=== PATIENT | female | born 1960 | race Caucasian/White ===

== ENCOUNTER 2017-10-11 13:32 | Inpatient (IN) ==
[2017-10-11] MEDS ORDERED: 0.9 % Sodium Chloride 1,000 ML IVC ONE (15:28)
[2017-10-11] MEDS ORDERED: Ondansetron 4 MG/2 ML VIAL IVP ONE (15:28)
--- NOTE | 2017-10-11 15:32 | Emergency Department Note ---
Disposition Clinical Impression: Nausea and vomiting Qualifiers: Vomiting type: unspecified Vomiting Intractability: unspecified Qualified Code( s): R11.2 - Nausea with vomiting, unspecified Pneumonia Qualifiers: Pneumonia type: due to unspecified organism Laterality: right Lung location: upper lobe of lung Qualified Code(s): J18.1 - Lobar pneumonia, unspecified organism Disposition: Admitted As Inpatient Condition: Good Referrals: Nakul Bhandari, FIXED CAPITAL CLERK [Primary Care Provider] - Forms: ED Satisfaction Letter Time of Disposition: 20:48 General Adult HPI - General Chief complaint: ED Nausea/Vomiting/Diarrhea Stated complaint: flu like symptoms Time Seen by Provider: 10/11/17 15:21 Source: patient Mode of arrival: ambulatory Limitations: no limitations Nursing Notes Reviewed: Yes Vital Signs Reviewed: Yes - History of Present Illness HPI Narrative: 57-year-old comes in complaining of nausea vomiting aches. She saw her family doctor, flu swab was negative, nausea vomiting for 4 days she cannot keep anything down. Pt Subjective Complaint: Nausea vomiting body aches Onset (ago): day(s) (4) Pain Scale: 7 Quality: aching Consistency: constant Improves with: nothing Worsens with: nothing Associated symptoms: Reports: cough, fever/chills, shortness of breath ( Intermittent) - Related Data Home Medications Medication Instructions Recorded Confirmed Albuterol Sulfate [Proair Hfa] 1 puff IH Q4H 10/22/15 10/22/15 Lovastatin [Mevacor] 20 mg PO HS 10/22/15 10/22/15 Fluticasone/Salmeterol [Advair 06/14/16 06/14/16 100-50 Diskus] Metoprolol [Lopressor] 25 mg PO 06/14/16 CloNIDine 1 PO DAILY 09/20/17 Losartan Potassium 09/20/17 Vitamin D 1 PO DAILY 09/20/17 Fluticasone Propionate Nasal 120 spray NS 10/08/17 [Flonase] Montelukast Sodium [Singulair] 10 mg PO 10/08/17 Previous Rx's Medication Instructions Recorded Promethazine [Phenergan] 25 mg PO Q6HR PRN #16 tablet 10/08/17 Allergies Allergy/AdvReac Type Severity Reaction Status Date / Time No Known Allergies Allergy Verified 09/20/17 13:46 All systems ED: reviewed and negative except as stated. Constitutional: Denies: fever, chills, weakness, weight change Eyes: Denies: eye pain, eye discharge, vision change ENT ED: Denies: ear pain, throat pain, dental pain, hearing loss, epistaxis, congestion, dysphagia Cardiovascular: Denies: chest pain, palpitations, dyspnea on exertion, edema, syncope Respiratory: Reports: cough. Denies: dyspnea, wheezes, hemoptysis, stridor Gastrointestinal: Reports: nausea, vomiting. Denies: abdominal pain, diarrhea, constipation, hematemesis, melena, hematochezia Genitourinary: Denies: dysuria, frequency, hematuria, discharge Musculoskeletal: Reports: arthralgia. Denies: back pain, neck pain, myalgia Integumentary: Denies: rash, abrasion, lesions Neurological: Denies: headache, weakness, numbness, paresthesias, confusion, abnormal gait, vertigo Psychiatric: Denies: anxiety, depression, suicidal thoughts, homicidal thoughts , auditory hallucinations, visual hallucinations Endocrine: Denies: fatigue Hematological/Lymphatic: Denies: easy bleeding, easy bruising Allergic/Immunologic: Denies: facial swelling, urticaria Past Medical History - Past Medical History Medical history: Reports: asthma, hyperlipidemia, hypertension, migraine Surgical history: Reports: non-contributory Psychiatric history: Reports: anxiety, depression PHYSICIAN PRACTICE CONSULTANT history: Reports: bilateral tubal ligation - Social History Smoking Status: Current every day smoker Smokeless Tobacco Status: No Alcohol use: Reports: none Drug use: Reports: none Physical Exam - General Limitations: no limitations General appearance: alert, in no apparent distress - Head Head exam: atraumatic, normocephalic, normal inspection - Eye Eye exam: Present: normal appearance, PERRL, EOMI - Expanded Eye Exam Pupils: Left: reactive - ENT ENT exam: normal exam, normal oropharynx, mucous membranes moist - Expanded ENT Exam External ear exam: Present: normal external inspection Mouth exam: Present: normal external inspection Teeth exam: Present: normal inspection Throat exam: Present: normal inspection - Neck Neck exam: Present: normal inspection, full ROM, trachea midline - Chest Chest inspection: Present: normal inspection, symmetric chest wall rise - Respiratory Respiratory exam: Present: normal lung sounds bilaterally - Cardiovascular Cardiovascular exam: Present: regular rate, normal rhythm, normal heart sounds - Abdominal Exam Abdominal exam: Present: soft, Non-Tender. Absent: tenderness, distention, guarding, rebound, rigidity - Extremities Exam Extremities exam: Present: normal inspection, full ROM. Absent: tenderness, pedal edema - Expanded Upper Extremity Exam Shoulder exam: Present: normal inspection, full ROM Arm exam: Present: normal inspection, full ROM Elbow exam: Present: normal inspection, full ROM Forearm/Wrist exam: Present: normal inspection, full ROM Hand exam: Present: normal inspection, full ROM Vascular exam: Normal: capillary refill, radial pulse - Expanded Lower Extremity Exam Hip/Pelvis exam: Present: normal inspection, full ROM Upper leg exam: Present: normal inspection, full ROM Knee exam: Present: normal inspection, full ROM Lower leg exam: Present: normal inspection, full ROM Ankle exam: Present: normal inspection, full ROM Foot/toe exam: Present: normal inspection, full ROM Neurovascular/Tendon exam: Absent: motor deficit, sensory deficit, tendon deficit - Back Exam Back exam: Present: normal inspection, full ROM. Absent: tenderness - Neurological Exam Neurological exam: Present: alert, oriented X3 - Expanded Neurological Exam Patient oriented to: Present: person, place, time Coma Scale Eye Opening: Spontaneous Coma Scale Motor Response: Obeys Commands Coma Scale Verbal Response: Oriented Coma Scale Total: 15 - Psychiatric Psychiatric exam: Present: normal affect, normal mood - Skin Skin exam: Present: warm, dry, intact, normal color Course - Reevaluation(s) Reevaluation #1: 57-year-old with a history of cough congestion body aches. Chest x-ray shows a large right upper lobe pneumonia also concerning for a mass. CT scan was obtained. Patient given IV antibiotics will be admitted for IV therapy. Time: 20:49 - Consultations Consultation #1: Discussed with Dr. Marie, admit Time: 21:01 Vital Signs Temperature 98.7 F 10/11/17 14:00 Pulse Rate 87 10/11/17 14:00 Respiratory Rate 20 10/11/17 14:00 Blood Pressure 130/100 10/11/17 14:00 O2 Sat by Pulse Oximetry 96 10/11/17 14:00 Temperature 98.7 F 10/11/17 14:00 Pulse Rate 88 10/11/17 20:38 Respiratory Rate 18 10/11/17 20:38 Blood Pressure 135/75 10/11/17 20:38 O2 Sat by Pulse Oximetry 99 10/11/17 20:38 Oxygen Delivery Oxygen Delivery Room Air Medical Decision Making - Lab Data Lab results reviewed: Yes I reviewed the patient's lab results. Result diagrams: 10/11/17 15:41 10/11/17 15:41 Lab Results 10/11/17 10/11/17 10/11/17 Range/Units 15:41 15:41 15:41 WBC 14.8 H (4.3-11.1) K/mcL RBC 3.66 L (3.82-4.97) M/mcL Hgb 11.1 L (11.5-15.4) g/dL Hct 33.1 L (35.3-44.9) % MCV 90.4 (83.0-100.0) fL MCH 30.3 (28.0-33.3) pg MCHC 33.5 (31.6-35.5) g/dL RDW 12.8 (11.5-14.5) % Plt Count 136 L (140-400) K/mcL MPV 10.4 (9.4-12.4) fL Immature Gran % 0.6 (0-4) % Seg Neutrophils % 84.7 % Lymphocytes % 6.5 % Monocytes % 7.9 % Eosinophils % 0.1 % Basophils % 0.2 % Neutrophils # 12.5 H (1.6-8.9) K/mcL Lymphocytes # 1.0 (0.6-4.6) K/mcL Monocytes # 1.2 (0.0-1.3) K/mcL Eosinophils # 0.0 (0.0-0.6) K/mcL Basophils # 0.0 (0.0-0.2) K/mcL Sodium 129 L (136-145) mEq/L Potassium 3.1 L (3.5-5.1) mEq/L Chloride 96 L (98-107) mEq/L Carbon Dioxide 25 (23-29) mEq/L BUN 14 (6-20) mg/dL Creatinine 0.92 (0.60-1.20) mg/dL Est GFR ( Amer) > 60 (> 60) Est GFR (Non-Af Amer) > 60 (> 60) BUN/Creatinine Ratio 15 (6-26) Glucose 144 H (70-105) mg/dL Calculated Osmolality 271 L (280-300) Lactic Acid 0.7 (0.5-2.2) mmol/L Calcium 8.9 (8.6-10.3) mg/dL Amylase < 10 L (29-103) Units/L Lipase 19 (11-82) Units/L - Radiology Data Radiology results reviewed: Yes I reviewed the patient's radiology results.
[2017-10-11 16:01] LABS: Basophils % 0.2 %; Eosinophils % 0.1 %; Hematocrit 33.1 % (35.3-44.9); Hemoglobin 11.1 g/dL (11.5-15.4); Immature Granulocytes % 0.6 % (0-4); Lymphocytes % 6.5 %; Mean Corpuscular HGB Conc 33.5 g/dL (31.6-35.5); Mean Corpuscular Hemoglobin 30.3 pg (28.0-33.3); Mean Corpuscular Volume 90.4 fL (83.0-100.0); Mean Platelet Volume 10.4 fL (9.4-12.4); Monocytes # 1.2 K/mcL (0.0-1.3); Monocytes % 7.9 %; Neutrophils # 12.5 K/mcL (1.6-8.9); Platelet Count 136 K/mcL (140-400); Red Blood Count 3.66 M/mcL (3.82-4.97); Red Cell Distribution Width 12.8 % (11.5-14.5); Segmented Neutrophils % 84.7 %
[2017-10-11 16:51] LABS: Amylase < 10 Units/L (29-103); BUN/Creatinine Ratio 15 (6-26); Blood Urea Nitrogen 14 mg/dL (6-20); Calcium 8.9 mg/dL (8.6-10.3); Carbon Dioxide 25 mEq/L (23-29); Chloride 96 mEq/L (98-107); Glucose 144 mg/dL (70-105); Lipase 19 Units/L (11-82); Osmolality,Calculated 271 (280-300); Potassium 3.1 mEq/L (3.5-5.1); Sodium 129 mEq/L (136-145); eGFR For African Americans > 60 (> 60); eGFR For Non-African Americans > 60 (> 60)
[2017-10-11] MEDS ORDERED: cefTRIAXone 1,000 MG in Water for inj. (sterile) 10 ML IVP ONE (20:45)
[2017-10-11] MEDS ORDERED: Azithromycin 500 MG in D5% in Water 250 ML IVPB ONE (20:45)
[2017-10-11] MEDS ORDERED: Acetaminophen 325 MG TABLET PO PRN (21:04)
[2017-10-11] MEDS ORDERED: *HR* HYDROcodone/Acet 5/325 mg TABLET PO PRN (21:04)
[2017-10-11] MEDS ORDERED: Naloxone 0.4 MG/ML INJ IVP PRN (21:04)
[2017-10-11] MEDS ORDERED: 0.9 % Sodium Chloride 1,000 ML IVC SCH (21:15)
[2017-10-11] MEDS: Ipratropium/Albuterol Neb 3 ML IH SCH (23:10)
--- NOTE | 2017-10-12 01:33 | Internal Med History&Physical ---
Date of Encounter: 10/11/17 Time of Encounter: 21:00 Assessment and Plan (1) SIRS (systemic inflammatory response syndrome) Current visit: Yes Status: Acute Admit the pt into med surg She does meet SIRS criteria with elevated WBC and source of inf as PNA cont IV hydration cont empirical abx check Resp viral panel, sputum cx, strep pneumonia, Legionella Influenza A & B - Neg (2) Pneumonia Current visit: Yes Status: Acute Reviewed CXR by myself - noticed RUL consolidation Mostly bacterial cont Duoneb Cont empirical abx Rocephin + Azithromycin Qualifiers: Pneumonia type: due to unspecified organism Laterality: right Lung location: upper lobe of lung Qualified Code(s): J18.1 - Lobar pneumonia, unspecified organism (3) COPD exacerbation Current visit: Yes Status: Acute IV steroids + Duoneb O2 PRN (4) Mass of upper lobe of right lung Current visit: Yes Status: Acute Pneumonia vs malignancy Reviewed CT of Chest - showed RUL mass with other nodules... Inf vs Malignancy need to repeat another CT of Chest in 2-3 weeks talked to the pt about this counseled to quit smoking too (5) Hyponatremia Current visit: Yes Status: Acute Mild Due to dehydration on IVF (6) Tobacco dependence Current visit: Yes Status: Acute Counseled to quit on nicotine patch (7) Hypertension Current visit: No Status: Chronic stable resumed home meds Qualifiers: Hypertension type: essential hypertension Qualified Code(s): I10 - Essential (primary) hypertension Internal Medicine - H&P: HPI Chief complaint: Cold / cough with expcetoration Admitted From: Emergency Dept Plans for Post Hospital Care: Home History of present illness: Ms. Wallace is a 57 year old female with known PMH of asthma, COPD not on home O2 , diabetes, GERD, hyperlipidemia, hypertension,and chronic tobacco dependence pt presented to ER with progressively worsening SOB, cough with expectoration. She also c/o nausea and vomiting. She denied any CP. Her CXR in the ER showed large RUL infiltrate mass vs pneumonia. Pt denied any recent travel history or any sick contacts. Past Med Surg Social Fam HX - Past Medical History Medical history: asthma, COPD, hyperlipidemia, hypertension, migraine, other Psychiatric history: anxiety, depression - Past Surgical History Surgical History: non-contributory - Social History Smoking Status: Current every day smoker Packs per day: 1/2-1 Smokeless Tobacco Status: No Alcohol use: none Drug use: none - Family History Sister Hx Family Respiratory Disorders: Yes (COPD) Father Hx Family Respiratory Disorders: Yes (COPD) Mother Hx Family Cardiac Disorders: Yes Internal Medicine - H&P: Meds Metoprolol [Lopressor] 25 mg PO BID 06/14/16 [History] Cholecalciferol (D-3) [Vitamin D] 5,000 unit PO DAILY 09/20/17 [History] Losartan Potassium [Cozaar] 100 mg PO DAILY 09/20/17 [History] cloNIDine HCl [CloNIDine HCl] 0.1 mg PO BID 09/20/17 [History] Fluticasone Propionate Nasal [Flonase] 50 mcg NS 1-2XD 10/08/17 [History] Acetaminophen [Tylenol] 650 mg PO Q6H PRN 10/11/17 [History] Fluticasone/Salmeterol [Advair 250-50 Diskus] 1 each IH BID 10/11/17 [History] Lovastatin 40 mg PO HS 10/11/17 [History] Montelukast [Singulair] 10 mg PO HS 10/11/17 [History] Omeprazole [PriLOSEC] 20 mg PO DAILY 10/11/17 [History] Sertraline [Zoloft] 100 mg PO DAILY 10/11/17 [History] 3 Allergy/AdvReac Type Severity Reaction Status Date / Time No Known Allergies Allergy Verified 09/20/17 13:46 All Systems PM: A 10-system review of systems was performed and is negative for pertinent findings except as documented above in the HPI. Review of systems: All the systems are reviewed everything is benign except the systems and symptoms I mentioned in the history of present illness - Constitutional Vitals: Temp Pulse Resp BP Pulse Ox 98.1 F 91 14 136/85 96 10/11/17 22:18 10/11/17 22:18 10/11/17 23:11 10/11/17 22:18 10/11/17 23:11 General appearance: Present: mild distress, A&O X 3, answers questions appropriately - Head Head exam: Present: atraumatic, normal inspection - Neck Neck exam general surgery: Present: supple - Respiratory Respiratory exam: Present: decreased breath sounds, respiratory distress (mild) , wheezes (moderate to severe). Absent: rales, rhonchi - Cardiovascular Cardiovascular exam: Present: RRR, +S1, +S2. Absent: systolic murmur, tachycardia - GI/Abdominal GI/Abdominal exam: Present: normal bowel sounds, soft. Absent: rebound, rigid, tenderness - Extremities Exam Extremities exam: Absent: calf tenderness, pedal edema, tenderness - Back Exam Back exam: Absent: CVA tenderness (L), CVA tenderness (R) - Neurological Exam Neurological exam: Present: alert, oriented X3 - Psychiatric Psychiatric exam: Present: anxious - Skin Skin exam: Absent: rash Internal Med - H&P Results - Labs CBC & Chem 7: 10/11/17 15:41 10/11/17 15:41
[2017-10-12] MEDS: MethylPREDNISolone 40 MG/ML VIAL IVP SCH ×4 (02:34→18:14)
[2017-10-12] MEDS: Ipratropium/Albuterol Neb 3 ML IH SCH ×6 (04:18→23:44)
[2017-10-12] MEDS: *HR* Enoxaparin 40 MG/0.4 ML SYRINGE SQ SCH (06:01)
[2017-10-12 07:03] LABS: Basophils % 0.1 %; Eosinophils % 0.1 %; Hematocrit 31.2 % (35.3-44.9); Immature Granulocytes % 1.8 % (0-4); Lymphocytes # 0.4 K/mcL (0.6-4.6); Lymphocytes % 3.7 %; Mean Corpuscular HGB Conc 32.1 g/dL (31.6-35.5); Mean Corpuscular Hemoglobin 29.7 pg (28.0-33.3); Mean Corpuscular Volume 92.6 fL (83.0-100.0); Mean Platelet Volume 10.4 fL (9.4-12.4); Monocytes # 0.4 K/mcL (0.0-1.3); Monocytes % 3.7 %; Platelet Count 128 K/mcL (140-400); Red Blood Count 3.37 M/mcL (3.82-4.97); Segmented Neutrophils % 90.6 %
[2017-10-12] MEDS: Budesonide/Formoterol 80/4.5 MDI IH SCH ×2 (07:27→20:20)
[2017-10-12] MEDS: cloNIDine HCl 0.1 MG TABLET PO SCH ×2 (07:59→21:08)
[2017-10-12] MEDS: Cholecalciferol (D-3) 1,000 UNIT TABLET PO SCH (07:59)
[2017-10-12] MEDS: Fluticasone Propionate Nasal 50 MCG/SPRAY BOTTLE NS SCH ×2 (08:00→21:07)
[2017-10-12] MEDS: cefTRIAXone 1,000 MG in Water for inj. (sterile) 20 ML 10 ML IVP SCH (08:00)
[2017-10-12] MEDS: Nicotine 21 MG PATCH.TD24 TD SCH (08:00)
[2017-10-12 08:07] LABS: Bilirubin,Urine Negative (Negative); Blood,Urine Trace (Negative); Clarity,Urine Clear (Clear); Color,Urine Yellow (Yellow); Glucose,Urine (UA) Normal (Normal); Ketones,Urine 40 mg/dL (Negative); Leukocyte Esterase,Urine Negative (Negative); Nitrite,Urine Negative (Negative); PH,Urine 5.5 pH Units (5.0-8.0); Protein,Urine >=300 mg/dL (Neg-Trace); Specific Gravity,Urine 1.025 (1.010-1.025); Urobilinogen,Urine Normal (Normal)
[2017-10-12 08:09] LABS: Bacteria,Urine None Seen per hpf (None-Few); Hyaline Casts,Urine None Seen per lpf (None-Few); RBC,Urine 0-3 per hpf (0-3); Squamous Epithelial Cell,Urine Many per lpf (None-Few)
[2017-10-12 08:17] LABS: BUN/Creatinine Ratio 16 (6-26); Blood Urea Nitrogen 14 mg/dL (6-20); Calcium 8.5 mg/dL (8.6-10.3); Carbon Dioxide 21 mEq/L (23-29); Chloride 102 mEq/L (98-107); Chol/HDL Ratio 7.3 (0-4.9); Cholesterol 87 mg/dL (< 200); Glucose 178 mg/dL (70-105); HDL Cholesterol 12 mg/dL (40-59); LDL Cholesterol,Calculated 38 mg/dL (0-99); Osmolality,Calculated 285 (280-300); Potassium 3.4 mEq/L (3.5-5.1); Sodium 135 mEq/L (136-145); Triglycerides 184 mg/dL (< 150); eGFR For African Americans > 60 (> 60); eGFR For Non-African Americans > 60 (> 60)
[2017-10-12] MEDS ORDERED: Potassium Chloride Elixir 20 MEQ/15 ML UDC PO ONE (08:35)
[2017-10-12 09:38] LABS: Adenovirus Not Detected (Not Detect); Bordetella Pertussis Not Detected (Not Detect); Chlamydophila pneumoniae Not Detected (Not Detect); Coronavirus 229E Not Detected (Not Detect); Coronavirus HKU1 Not Detected (Not Detect); Coronavirus NL63 Not Detected (Not Detect); Coronavirus OC43 Not Detected (Not Detect); Human Metapneumovirus Not Detected (Not Detect); Human Rhinovirus/Enterovirus Not Detected (Not Detect); Influenza A Subtype 2009 H1 Not Detected (Not Detect); Influenza A Untypeable Not Detected (Not Detect); Influenza B Not Detected (Not Detect); Mycoplasma pneumoniae Not Detected (Not Detect); Parainfluenza Virus 1 Not Detected (Not Detect); Parainfluenza Virus 2 Not Detected (Not Detect); Parainfluenza Virus 3 Not Detected (Not Detect); Parainfluenza Virus 4 Not Detected (Not Detect); Respiratory Syncytial Virus Not Detected (Not Detect)
--- NOTE | 2017-10-12 17:42 | Event Note ---
Date of Encounter: 10/12/17 Time of Encounter: 13:00 57-year-old female with history of tobacco abuse, hypertension, COPD/asthma, diabetes, admitted with worsening cough and shortness of breath. Seen and examined at bedside. Continues to have dry hacking cough, intermittent shortness of breath. Chest-S1, S2 heard. Lungs with coarse breath sounds bilaterally, scattered rhonchi. Acute exacerbation of COPD-continue IV steroids, empiric IV antibiotics. Likely due to underlying pneumonia. Respiratory infection panel negative. Continue bronchodilators and supplemental oxygen. Acute hypoxic respiratory failure Right upper lobe pneumonia-underlying lung mass cannot be excluded. Patient explained about this, recommended 3-[address] to ensure resolution. Continue IV Rocephin and azithromycin. Urine Legionella and strep pneumoniae antigen negative.
[2017-10-12] MEDS ORDERED: Benzonatate 100 MG CAPSULE PO PRN (17:43)
[2017-10-12] MEDS: Azithromycin 500 MG in D5% in Water 250 ML IVPB SCH (21:07)
[2017-10-13] MEDS: MethylPREDNISolone 40 MG/ML VIAL IVP SCH ×4 (00:02→17:56)
[2017-10-13] MEDS: Ipratropium/Albuterol Neb 3 ML IH SCH ×6 (04:29→23:54)
[2017-10-13] MEDS: *HR* Enoxaparin 40 MG/0.4 ML SYRINGE SQ SCH (05:26)
[2017-10-13 06:44] LABS: Hematocrit 30.4 % (35.3-44.9); Hemoglobin 10.1 g/dL (11.5-15.4); Mean Corpuscular HGB Conc 33.2 g/dL (31.6-35.5); Mean Corpuscular Hemoglobin 30.3 pg (28.0-33.3); Mean Corpuscular Volume 91.3 fL (83.0-100.0); Mean Platelet Volume 10.4 fL (9.4-12.4); Monocytes # 0.3 K/mcL (0.0-1.3); Nucleated Red Blood Cells 0.2 /100 WBC (0); Platelet Count 132 K/mcL (140-400); Red Blood Count 3.33 M/mcL (3.82-4.97); Red Cell Distribution Width 12.9 % (11.5-14.5)
[2017-10-13 07:05] LABS: BUN/Creatinine Ratio 26 (6-26); Blood Urea Nitrogen 27 mg/dL (6-20); Calcium 8.8 mg/dL (8.6-10.3); Carbon Dioxide 23 mEq/L (23-29); Chloride 101 mEq/L (98-107); Glucose 447 mg/dL (70-105); Osmolality,Calculated 300 (280-300); Potassium 3.9 mEq/L (3.5-5.1); Sodium 133 mEq/L (136-145); eGFR For African Americans > 60 (> 60); eGFR For Non-African Americans 56 (> 60)
[2017-10-13] MEDS: Budesonide/Formoterol 80/4.5 MDI IH SCH ×2 (08:15→20:28)
[2017-10-13 08:51] LABS: Lymphocytes # 0.2 K/mcL (0.6-4.6)
[2017-10-13 08:52] LABS: Large Platelets Present (Not Present); Platelet Estimate Slight Decrease (Normal)
[2017-10-13] MEDS: Fluticasone Propionate Nasal 50 MCG/SPRAY BOTTLE NS SCH ×2 (09:45→21:10)
[2017-10-13] MEDS: Nicotine 21 MG PATCH.TD24 TD SCH (09:46)
[2017-10-13] MEDS: cefTRIAXone 1,000 MG in Water for inj. (sterile) 20 ML 10 ML IVP SCH (09:46)
[2017-10-13] MEDS: cloNIDine HCl 0.1 MG TABLET PO SCH ×2 (09:46→21:09)
[2017-10-13] MEDS: Cholecalciferol (D-3) 1,000 UNIT TABLET PO SCH (09:46)
--- NOTE | 2017-10-13 17:19 | Internal Med Progress Note ---
Date of Encounter: 10/13/17 Time of Encounter: 13:10 - Assessment and plan (1) COPD exacerbation Current Visit: Yes Status: Acute Assessment and plan: continue bronchodilators, IV steroids, IV antibiotics, supplemental O2; continues to require 2-3L/min via NC, wean down FiO2 as tolerated; CT chest shows mass-like consolidation in right upper lobe, could be infectious but mass cannot be excluded; needs outpatient repeat CT chest to ensure resolution; (2) Hyponatremia Current Visit: Yes Status: Acute Assessment and plan: could be related to infection; continue to monitor; (3) Mass of upper lobe of right lung Current Visit: Yes Status: Acute Assessment and plan: plan as above; (4) Pneumonia Current Visit: Yes Status: Acute Assessment and plan: continue IV Rocephin and Azithromycin, supplemental O2 and supportive care; Qualifiers: Pneumonia type: due to unspecified organism Laterality: right Lung location: upper lobe of lung Qualified Code(s): J18.1 - Lobar pneumonia, unspecified organism (5) Tobacco dependence Current Visit: Yes Status: Chronic Assessment and plan: continue Nicotine transdermal patch; (6) CKD (chronic kidney disease) stage 3, GFR 30-59 ml/min Current Visit: Yes Status: Chronic Assessment and plan: serum creatinine at baseline; avoid nephrotoxic agents and monitor creatinine closely; (7) Hypertension Current Visit: Yes Status: Chronic Qualifiers: Hypertension type: essential hypertension Qualified Code(s): I10 - Essential (primary) hypertension - Subjective Interval history: Feels better but still has fatigue, noted to have shortness of breath on speaking long sentences; tolerates diet; no vomiting, diarrhea, abdominal or chest pain; - Constitutional Vitals: Temp Pulse Resp BP Pulse Ox 97.5 F L 96 18 151/79 97 10/13/17 14:59 10/13/17 14:59 10/13/17 16:38 10/13/17 14:59 10/13/17 16:38 General appearance: Present: mild distress, A&O X 3, obese, answers questions appropriately - Respiratory Respiratory exam: Present: decreased breath sounds (decreased air entry B/L), CTAB, rhonchi. Absent: accessory muscle use, rales, wheezes - Cardiovascular Cardiovascular exam: Present: RRR, +S1, +S2. Absent: diastolic murmur, gallop, rubs, systolic murmur - GI/Abdominal GI/Abdominal exam: Present: normal bowel sounds, soft (obese), no peritoneal signs. Absent: distended, tenderness - Extremities Exam Extremities exam: Present: pedal edema (trace peripheral edema noted), warm, radial pulses palpable and symmetrical. Absent: calf tenderness, cyanotic - Neurological Exam Neurological exam: Present: CN II-XII intact, oriented X3, no focal deficits. Absent: pronater drift, facial droop, speech deficit Internal Medicine: Result - Labs CBC & Chem 7: 10/14/17 07:03 10/14/17 07:03 Labs: Short CBC 10/13/17 Range/Units 06:26 WBC 8.5 (4.3-11.1) K/mcL Hgb 10.1 L (11.5-15.4) g/dL Hct 30.4 L (35.3-44.9) % Plt Count 132 L (140-400) K/mcL Neutrophils # 8.0 (1.6-8.9) K/mcL BMP 10/13/17 06:26 Sodium 133 L Potassium 3.9 Chloride 101 Carbon Dioxide 23 BUN 27 H Creatinine 1.02 Glucose 447 H Calcium 8.8 Consult Discharge Plan - Plan Referrals: Nakul Bhandari, SECOND WORKER [Primary Care Provider] -
[2017-10-13] MEDS: Azithromycin 500 MG in D5% in Water 250 ML IVPB SCH (21:09)
[2017-10-13] MEDS ORDERED: *HR* Dextrose 50 % in Water (Syg) 50 ML SYRINGE IVP PRN (23:08)
[2017-10-13] MEDS ORDERED: D5% in Water 1,000 ML IVC PRN (23:08)
[2017-10-13] MEDS ORDERED: Dextrose Gel 15 GM/37.5 ML TUBE PO PRN ×2 (23:08)
[2017-10-14] MEDS: MethylPREDNISolone 40 MG/ML VIAL IVP SCH ×2 (00:21→13:49)
[2017-10-14] MEDS: Ipratropium/Albuterol Neb 3 ML IH SCH ×6 (04:22→23:16)
[2017-10-14] MEDS: *HR* Enoxaparin 40 MG/0.4 ML SYRINGE SQ SCH (05:24)
[2017-10-14 07:12] LABS: Basophils % 0.1 %; Hematocrit 31.6 % (35.3-44.9); Hemoglobin 10.3 g/dL (11.5-15.4); Immature Granulocytes % 5.9 % (0-4); Lymphocytes # 0.5 K/mcL (0.6-4.6); Lymphocytes % 5.2 %; Mean Corpuscular HGB Conc 32.6 g/dL (31.6-35.5); Mean Corpuscular Hemoglobin 30.2 pg (28.0-33.3); Mean Corpuscular Volume 92.7 fL (83.0-100.0); Mean Platelet Volume 10.3 fL (9.4-12.4); Monocytes # 0.4 K/mcL (0.0-1.3); Monocytes % 4.4 %; Neutrophils # 7.3 K/mcL (1.6-8.9); Platelet Count 151 K/mcL (140-400); Red Blood Count 3.41 M/mcL (3.82-4.97); Red Cell Distribution Width 12.9 % (11.5-14.5); Segmented Neutrophils % 84.4 %
[2017-10-14 07:27] LABS: BUN/Creatinine Ratio 30 (6-26); Blood Urea Nitrogen 29 mg/dL (6-20); Calcium 9.1 mg/dL (8.6-10.3); Carbon Dioxide 27 mEq/L (23-29); Chloride 98 mEq/L (98-107); Glucose 427 mg/dL (70-105); Osmolality,Calculated 294 (280-300); Potassium 4.4 mEq/L (3.5-5.1); Sodium 130 mEq/L (136-145); eGFR For African Americans > 60 (> 60); eGFR For Non-African Americans > 60 (> 60)
[2017-10-14] MEDS: Insulin LISPRO 300 UNITS/3 ML VIAL SQ SCH ×3 (07:52→16:33)
[2017-10-14] MEDS: cloNIDine HCl 0.1 MG TABLET PO SCH ×2 (07:55→21:05)
[2017-10-14] MEDS: Nicotine 21 MG PATCH.TD24 TD SCH (07:56)
[2017-10-14] MEDS: Fluticasone Propionate Nasal 50 MCG/SPRAY BOTTLE NS SCH ×2 (07:56→21:04)
[2017-10-14] MEDS: cefTRIAXone 1,000 MG in Water for inj. (sterile) 20 ML 10 ML IVP SCH (07:56)
[2017-10-14] MEDS: Cholecalciferol (D-3) 1,000 UNIT TABLET PO SCH (07:57)
[2017-10-14] MEDS: Budesonide/Formoterol 80/4.5 MDI IH SCH ×2 (08:19→20:30)
[2017-10-14] MEDS ORDERED: 0.9 % Sodium Chloride 1,000 ML IVC SCH (10:15)
[2017-10-14 10:52] LABS: Thyroid Stimulating Hormone 0.619 mcIU/mL (0.340-5.600)
[2017-10-14] MEDS: Insulin DETEMIR 100 UNIT/ML X5UNITS SQ SCH ×2 (11:55→21:04)
--- NOTE | 2017-10-14 17:13 | Internal Med Progress Note ---
Date of Encounter: 10/14/17 Time of Encounter: 11:15 - Assessment and plan (1) COPD exacerbation Current Visit: Yes Status: Acute Assessment and plan: improving. continue bronchodilators, taper down IV steroids, IV antibiotics, supplemental O2; continues to require 2-3L/min via NC, wean down FiO2 as tolerated; respiratory viral panel negative. CT chest shows mass-like consolidation in right upper lobe, could be infectious but mass cannot be excluded; needs outpatient repeat CT chest to ensure resolution; (2) Hyponatremia Current Visit: Yes Status: Acute Assessment and plan: could be related to infection; give IV hydration; continue to monitor; (3) Mass of upper lobe of right lung Current Visit: Yes Status: Acute Assessment and plan: plan as above; (4) Pneumonia Current Visit: Yes Status: Acute Assessment and plan: continue IV Rocephin and Azithromycin, supplemental O2 and supportive care; Qualifiers: Pneumonia type: due to unspecified organism Laterality: right Lung location: upper lobe of lung Qualified Code(s): J18.1 - Lobar pneumonia, unspecified organism (5) Tobacco dependence Current Visit: Yes Status: Chronic (6) CKD (chronic kidney disease) stage 3, GFR 30-59 ml/min Current Visit: Yes Status: Chronic (7) Hypertension Current Visit: Yes Status: Chronic Qualifiers: Hypertension type: essential hypertension Qualified Code(s): I10 - Essential (primary) hypertension (8) Acute respiratory failure Current Visit: Yes Status: Acute Assessment and plan: due to COPD and PNA; Qualifiers: Respiratory failure complication: hypoxia Qualified Code(s): J96.01 - Acute respiratory failure with hypoxia (9) DM type 2 (diabetes mellitus, type 2) Current Visit: Yes Status: Chronic Assessment and plan: Patient was not placed on Accuchecks monitoring initially; but noted to have hyperglycemia on BMP testing, likely steroid-induced; HbA1C noted to be 7%; she reports that she was on Metformin in the past, but stopped since her DM was well -controlled only with diet. Continue basal bolus insulin regimen; diabetic diet; Qualifiers: Diabetes mellitus complication status: with kidney complications Diabetes mellitus complication detail: with chronic kidney disease Diabetes mellitus half-way insulin use: without terminal press operator use Chronic kidney disease stage: stage 3 (moderate) Qualified Code(s): E11.22 - Type 2 diabetes mellitus with diabetic chronic kidney disease; N18.3 - Chronic kidney disease, stage 3 ( moderate) - Subjective Interval history: Feels a lot better today; requiring 2L/min via NC; no nausea, vomiting, abdominal or chest pain. Improving SOB, palpitations; - Constitutional Vitals: Temp Pulse Resp BP Pulse Ox 97.6 F 83 18 119/77 96 10/14/17 14:26 10/14/17 14:26 10/14/17 15:22 10/14/17 14:26 10/14/17 15:22 General appearance: Present: A&O X 3, obese, answers questions appropriately - Respiratory Respiratory exam: Present: CTAB (coarse breath sounds B/L, scattered rhonchi). Absent: accessory muscle use, rales, rhonchi, wheezes - Cardiovascular Cardiovascular exam: Present: RRR, +S1, +S2. Absent: diastolic murmur, gallop, rubs, systolic murmur - GI/Abdominal GI/Abdominal exam: Present: normal bowel sounds, soft, no peritoneal signs. Absent: distended, tenderness - Extremities Exam Extremities exam: Present: full ROM, pedal edema, warm, radial pulses palpable and symmetrical. Absent: calf tenderness, cyanotic - Neurological Exam Neurological exam: Present: CN II-XII intact, oriented X3, no focal deficits. Absent: pronater drift, facial droop, speech deficit - Skin Skin exam: Present: dry, intact Internal Medicine: Result - Labs CBC & Chem 7: 10/14/17 07:03 10/14/17 07:03 Labs: Short CBC 10/14/17 Range/Units 07:03 WBC 8.6 (4.3-11.1) K/mcL Hgb 10.3 L (11.5-15.4) g/dL Hct 31.6 L (35.3-44.9) % Plt Count 151 (140-400) K/mcL Neutrophils # 7.3 (1.6-8.9) K/mcL BMP 10/14/17 07:03 Sodium 130 L Potassium 4.4 Chloride 98 Carbon Dioxide 27 BUN 29 H Creatinine 0.96 Glucose 427 H Calcium 9.1 Consult Discharge Plan - Plan Referrals: Nakul Bhandari, FLARE MAN [Primary Care Provider] -
[2017-10-14] MEDS ORDERED: Insulin LISPRO 300 UNITS/3 ML VIAL SQ SCH (21:00)
[2017-10-14] MEDS: Azithromycin 500 MG in D5% in Water 250 ML IVPB SCH (21:03)
[2017-10-15] MEDS: Ipratropium/Albuterol Neb 3 ML IH SCH ×3 (03:56→12:02)
[2017-10-15] MEDS: *HR* Enoxaparin 40 MG/0.4 ML SYRINGE SQ SCH (05:52)
[2017-10-15 06:05] LABS: BUN/Creatinine Ratio 29 (6-26); Blood Urea Nitrogen 28 mg/dL (6-20); Calcium 9.1 mg/dL (8.6-10.3); Carbon Dioxide 27 mEq/L (23-29); Chloride 101 mEq/L (98-107); Glucose 172 mg/dL (70-105); Osmolality,Calculated 292 (280-300); Potassium 3.7 mEq/L (3.5-5.1); Sodium 136 mEq/L (136-145); eGFR For African Americans > 60 (> 60); eGFR For Non-African Americans > 60 (> 60)
[2017-10-15] MEDS: Budesonide/Formoterol 80/4.5 MDI IH SCH (07:56)
--- NOTE | 2017-10-15 08:02 | Internal Med Progress Note ---
Date of Encounter: 10/15/17 - Assessment and plan (1) CKD (chronic kidney disease) stage 3, GFR 30-59 ml/min Current Visit: Yes Status: Chronic (2) Hypertension Current Visit: Yes Status: Chronic Qualifiers: Hypertension type: essential hypertension Qualified Code(s): I10 - Essential (primary) hypertension (3) Tobacco dependence Current Visit: Yes Status: Chronic (4) COPD exacerbation Current Visit: Yes Status: Acute (5) Hyponatremia Current Visit: Yes Status: Acute Assessment and plan: Resolved with IV hydration. Continue to monitor tomorrow. (6) Acute respiratory failure Current Visit: Yes Status: Acute Assessment and plan: Currently on NC 2L. Treating pneumonia and COPD Qualifiers: Respiratory failure complication: hypoxia Qualified Code(s): J96.01 - Acute respiratory failure with hypoxia (7) Pneumonia Current Visit: Yes Status: Acute Qualifiers: Pneumonia type: due to unspecified organism Laterality: right Lung location: upper lobe of lung Qualified Code(s): J18.1 - Lobar pneumonia, unspecified organism - Constitutional Vitals: Temp Pulse Resp BP Pulse Ox 97.5 F L 94 16 161/92 93 10/15/17 04:24 10/15/17 04:24 10/15/17 04:24 10/15/17 04:24 10/15/17 04:24 General appearance: Present: A&O X 3, obese, answers questions appropriately Internal Medicine: Result - Labs CBC & Chem 7: 10/14/17 07:03 10/15/17 04:40 Labs: Short CBC 10/14/17 Range/Units 07:03 WBC 8.6 (4.3-11.1) K/mcL Hgb 10.3 L (11.5-15.4) g/dL Hct 31.6 L (35.3-44.9) % Plt Count 151 (140-400) K/mcL Neutrophils # 7.3 (1.6-8.9) K/mcL BMP 10/14/17 10/15/17 07:03 04:40 Sodium 130 L 136 Potassium 4.4 3.7 Chloride 98 101 Carbon Dioxide 27 27 BUN 29 H 28 H Creatinine 0.96 0.96 Glucose 427 H 172 H Calcium 9.1 9.1 Consult Discharge Plan - Plan Referrals: Nakul Bhandari, ASSIST[employer] ATTORNEY [Primary Care Provider] -
[2017-10-15] MEDS: cloNIDine HCl 0.1 MG TABLET PO SCH (08:08)
[2017-10-15] MEDS: Nicotine 21 MG PATCH.TD24 TD SCH (08:09)
[2017-10-15] MEDS: Fluticasone Propionate Nasal 50 MCG/SPRAY BOTTLE NS SCH (08:09)
[2017-10-15] MEDS: Insulin DETEMIR 100 UNIT/ML X5UNITS SQ SCH (08:09)
[2017-10-15] MEDS: cefTRIAXone 1,000 MG in Water for inj. (sterile) 20 ML 10 ML IVP SCH (08:10)
[2017-10-15] MEDS: Cholecalciferol (D-3) 1,000 UNIT TABLET PO SCH (08:10)
[2017-10-15] MEDS: Insulin LISPRO 300 UNITS/3 ML VIAL SQ SCH ×2 (08:13→11:50)
[2017-10-15] MEDS ORDERED: MethylPREDNISolone 40 MG/ML VIAL IVP SCH (09:00)
[2017-10-15] MEDS ORDERED: predniSONE 20 MG TABLET PO SCH (09:45)
[2017-10-15 11:19] VITALS: BP 168/89
--- NOTE | 2017-10-15 14:48 | Discharge Summary ---
<Latasha Aguilera - Last Filed: 10/15/17 15:08> Date of Encounter: 10/15/17 Time of Encounter: 09:00 - Discharge Diagnosis (1) CKD (chronic kidney disease) stage 3, GFR 30-59 ml/min Priority: Secondary Status: Chronic (2) Hypertension Priority: Secondary Status: Chronic Qualifiers: Hypertension type: essential hypertension Qualified Code(s): I10 - Essential (primary) hypertension (3) Tobacco dependence Priority: Secondary Status: Chronic (4) COPD exacerbation Priority: Secondary Status: Acute (5) Hyponatremia Priority: Secondary Status: Acute (6) Acute respiratory failure Priority: Primary Status: Acute Qualifiers: Respiratory failure complication: hypoxia Qualified Code(s): J96.01 - Acute respiratory failure with hypoxia (7) Pneumonia Priority: Secondary Status: Acute Qualifiers: Pneumonia type: due to unspecified organism Laterality: right Lung location: upper lobe of lung Qualified Code(s): J18.1 - Lobar pneumonia, unspecified organism - Discharge Medications Prescriptions: Albuterol Neb [Proventil Neb] 2.5 mg IH Q4HR PRN #60 vial.neb PRN Reason: Shortness Of Breath Benzonatate [Tessalon] 100 mg PO TID PRN #10 capsule PRN Reason: Cough Cefdinir [Omnicef] 300 mg PO BID #6 capsule GuaiFENesin ER [Mucinex] 600 mg PO BID #10 tbbp.12hr Nebulizer [Truneb Nebulizer] 1 each MC Q4H #1 each predniSONE [PredniSONE] See Taper PO DAILY #7 tablet Home Medications: Metoprolol [Lopressor] 25 mg PO BID 06/14/16 [History] Cholecalciferol (D-3) [Vitamin D] 5,000 unit PO DAILY 09/20/17 [History] Losartan Potassium [Cozaar] 100 mg PO DAILY 09/20/17 [History] cloNIDine HCl [CloNIDine HCl] 0.1 mg PO BID 09/20/17 [History] Fluticasone Propionate Nasal [Flonase] 50 mcg NS 1-2XD 10/08/17 [History] Acetaminophen [Tylenol] 650 mg PO Q6H PRN 10/11/17 [History] Fluticasone/Salmeterol [Advair 250-50 Diskus] 1 each IH BID 10/11/17 [History] Lovastatin 40 mg PO HS 10/11/17 [History] Montelukast [Singulair] 10 mg PO HS 10/11/17 [History] Omeprazole [PriLOSEC] 20 mg PO DAILY 10/11/17 [History] Sertraline [Zoloft] 100 mg PO DAILY 10/11/17 [History] Albuterol Neb [Proventil Neb] 2.5 mg IH Q4HR PRN #60 vial.neb 10/15/17 [Rx] Benzonatate [Tessalon] 100 mg PO TID PRN #10 capsule 10/15/17 [Rx] Cefdinir [Omnicef] 300 mg PO BID #6 capsule 10/15/17 [Rx] GuaiFENesin ER [Mucinex] 600 mg PO BID #10 tbbp.12hr 10/15/17 [Rx] Nebulizer [Truneb Nebulizer] 1 each MC Q4H #1 each 10/15/17 [Rx] predniSONE [PredniSONE] See Taper PO DAILY #7 tablet 10/15/17 [Rx] Allergies/Adverse Reactions: 3 Allergy/AdvReac Type Severity Reaction Status Date / Time No Known Allergies Allergy Verified 09/20/17 13:46 Date of admission: 10/11/17 21:13 Primary care physician: Nakul Bhandari CNP Consults: 10/14/17 10:06 Consult to Occupational Therapy [CONS] Routine Comment: Evaluate, develop and implement POC Reason for Consult: Obesity, COPD, deconditioning Consult to Physical Therapy [CONS] Routine Comment: Evaluate, develop and implement POC Reason for Consult: Obesity, COPD, deconditioning 10/14/17 11:58 Consult to Invasive Line Access Team [CONS] Routine Reason for Consult: Need access Line Type: EPIV Discharging clinician: Nacho Villanueva Anticipated date of discharge: 10/15/17 - Patient Status Disposition: Home, Self-Care Condition: Good Functional capacity at discharge: independent ambulation Overall status at discharge: patient is progressing back to baseline - Ambulatory Orders Ambulatory Orders: CT chest w con [CT] Time Frame: 3 Weeks, Facility: [facility] , Location: Lobby - Discharge Instructions Instructions: Bronchiolitis (DC), COPD Exacerbation, Regulatory Manager (GEN) Follow Up With: Nakul Bhandari CNP [Primary Care Provider] - 10/28/17 2:00 pm Additional Instructions: Over the next couple of days please take your morning blood sugar level and let your primary care physician when you see him in 2-3 days. Please obtain a repeat CT scan in 3-4 weeks. Results will be sent to your primary care physician. Please take prescriptions as prescribed. Thank you for entrusting us with your care! - Diet and Activity Activity: increase activity as tolerated Diet: diabetic diet Hospital course: Ms. Wallace is a 57 year old female with past medical history of COPD, diabetes type 2, CK D date 3 presented to the ED for nausea and vomiting for 4 days and was found to be in acute respiratory failure secondary to pneumonia with possible mass and COPD exacerbation. Patient was started on ceftriaxone, pulmonary toileting, and IV steroids. Patient's breathing improved and patient was weaned off nasal cannula onto room air. Patient did have elevated glucoses and was placed on low dose sliding scale of insulin but expect blood glucose to decrease without medical intervention as patient was weaned to oral prednisone. Patient was instructed to follow-up with primary care physician in 2-3 days for hospital follow-up and to recheck need for glucose control. Patient was instructed to take daily fasting blood glucoses until appointment. Patient was sent home on Omnicef 300 mg twice a day for 3 days to completely a course of 7 days of antibiotics. Patient was also sent home on a prednisone taper of 40 mg for 2 days followed by 20 mg for 2 days followed by 10 mg for 2 days. Patient is also given a nebulizer with albuterol 4 treatments every 4 hours when necessary. Patient is stable and is ready for discharge. We will follow up with primary care physician in 2-3 days. Due to the concerns on the chest CT of a masslike consolidation patient was scheduled for a chest CT with contrast in 3-4 weeks with results to be sent to primary care physician to see if masslike structure resolves. - Time Spent with Patient Total time spent providing and/or coordinating discharge services: - Constitutional Vitals: Temp Pulse Resp BP Pulse Ox 97.8 F 84 16 168/89 94 10/15/17 11:14 10/15/17 11:14 10/15/17 11:14 10/15/17 11:14 10/15/17 11:14 General appearance: Present: A&O X 3, obese, answers questions appropriately - Other Additional findings: Constitutional: Alert, in no acute distress, well nourished, well developed. Head: Normocephalic, atraumatic, normal contour and symmetric, no masses, lesions or scars Heart: Normal, regular rate and rhythm, no murmurs Lungs: + wheezing scattered but not with every breath, full breath sounds bilaterally Clear to auscultation, no wheezes, rales, or rhonchi Abdomen: Soft, nondistended, nontender, Extremities: No clubbing, cyanosis, or edema, capillary refill <2sec. Skin: Skin warm and dry, no lesions, no rashes, no jaundice Neurologic: Cranial nerves II through XII grossly intact, no focal deficits, strength within normal limits in all extremities Psych: Cooperative with exam, good eye contact, cognitive function intact, judgment good insight good, speech clear, thought process logical, and goal directed <Nacho Villanueva T - Last Filed: 10/15/17 17:08> Date of Encounter: 10/15/17 Date of admission: 10/11/17 21:13 Primary care physician: Nakul Bhandari CNP Consults: 10/14/17 10:06 Consult to Occupational Therapy [CONS] Routine Comment: Evaluate, develop and implement POC Reason for Consult: Obesity, COPD, deconditioning Consult to Physical Therapy [CONS] Routine Comment: Evaluate, develop and implement POC Reason for Consult: Obesity, COPD, deconditioning 10/14/17 11:58 Consult to Invasive Line Access Team [CONS] Routine Reason for Consult: [facility] course: Ms. Wallace is a 57 year old female - Time Spent with Patient Total time spent providing and/or coordinating discharge services: - Constitutional Vitals: Temp Pulse Resp BP Pulse Ox 97.8 F 84 16 168/89 94 10/15/17 11:14 10/15/17 11:14 10/15/17 12:03 10/15/17 11:14 10/15/17 12:03 - Attending Attestation Seen and examined at bedside, patient is admitted and being managed for hypoxic respiratory failure due to pneumonia and copd exacerbation. suspected lung mass She reported significant improvement and is not in distress O2 has been weaned off breath sounds distant but chest is clear she has completed a course of azithromycin, stable to discharge home on omnicef , prednisone, nebs. Educated about need for repeat CT chest in 4-5 weeks. Rest of details as in resident physician's documentation
== END 2017-10-15 15:58 | disposition home or self-care (01) | DRG 140 ==
LOC: 3ANU 13:32 → EMEROO 13:32 → SUATTDRO 21:13 → 3ANU 22:07
PROVIDERS: ADMIT Family Medicine; ATTEND Internal Medicine